=== PATIENT | male | born 1975 | race Caucasian/White ===

== ENCOUNTER 2024-09-11 11:18 | Inpatient (IN) | payer OTHER ==
[2024-09-11 11:48] VITALS: BMI 20.7
[2024-09-11] MEDS ORDERED: BENZOCAINE/MENTHOL (CHLORASEPTIC ) LOZENGE MM PRN (13:23)
[2024-09-11] MEDS ORDERED: LOPERAMIDE HCL 2 MG CAPSULE PO PRN (13:23)
[2024-09-11] MEDS ORDERED: NALOXONE (NARCAN) HCL 4 MG/0.1 ML SPRAY NS PRN (13:23)
[2024-09-11] MEDS ORDERED: MAG HYDROX/AL HYDROX/SIMETH 30 ML UNIT-DOSE CUP PO PRN (13:23)
[2024-09-11] MEDS ORDERED: MAGNESIUM HYDROX 2400MG/30ML ORAL SUSPENSION 30 ML CUP PO PRN (13:23)
[2024-09-11] MEDS ORDERED: chlordiazePOXIDE HCL 25 MG CAPSULE PO PRN (13:23)
[2024-09-11] MEDS ORDERED: POLYETHYLENE GLYCOL (HEALTHYLAX) 3350 17 GM PACKET PO PRN (13:23)
[2024-09-11] MEDS ORDERED: guaiFENesin 600 MG TABLET.ER (FP) PO PRN (13:23)
[2024-09-11] MEDS ORDERED: IBUPROFEN 400 MG TABLET (FP) PO PRN (13:23)
[2024-09-11] MEDS ORDERED: BISMUTH SUBSALICYLATE 524 MG/30 ML PO PRN (13:23)
[2024-09-11] MEDS ORDERED: DICYCLOMINE HCL 10 MG CAPSULE PO PRN (13:23)
[2024-09-11] MEDS ORDERED: BENZONATATE 200 MG CAPSULE PO PRN (13:23)
[2024-09-11] MEDS ORDERED: ALBUTEROL SO4 HFA INHALER IH PRN (13:55)
[2024-09-11] MEDS: FLUoxetine HCL 20 MG CAPSULE PO SCH (14:42)
[2024-09-11] MEDS: THIAMINE 100 MG TABLET PO SCH (22:33)
[2024-09-11] MEDS: traZODone HCL 50 MG TABLET (FP) PO SCH (22:34)
[2024-09-11] MEDS: MELATONIN 5 MG TABLETS PO SCH (22:34)
[2024-09-11] MEDS: chlordiazePOXIDE HCL 25 MG CAPSULE PO SCH (22:35)
[2024-09-12] MEDS: PRENATAL VITAMINS W/ FOLIC ACID TABLET (FP) PO SCH (10:09)
[2024-09-12 11:19] LABS: HEMATOCRIT 41.7 % (35.4-49); HEMOGLOBIN 13.9 GM/dL (11.7-16.9); MCH 28.8 pg (25.7-33.7); MCHC 33.3 g/dl (32.0-35.9); MEAN CELL VOLUME 86.4 fl (80-96); MEAN PLT VOLUME 9.1 fl (7.5-11.1); PLATELET COUNT 190 10^3/uL (134-434); RBC 4.82 M/mm3 (4.00-5.60); RDW 15.3 % (11.9-15.9)
[2024-09-12 11:31] LABS: CALCIUM 9.4 mg/dL (8.5-10.1); POTASSIUM 4.3 mmol/L (3.5-5.1)
[2024-09-12 11:32] LABS: ALBUMIN 3.8 g/dl (3.4-5.0); BLOOD UREA NITROGEN 20.3 mg/dL (7-18)
[2024-09-12 11:35] LABS: CREATININE 1.3 mg/dL (0.55-1.3)
[2024-09-12 11:36] LABS: BILIRUBIN,TOTAL 0.2 mg/dL (0.2-1)
[2024-09-12] MEDS: METHOCARBAMOL 500 MG TABLET PO PRN (22:27)
[2024-09-13] MEDS: chlordiazePOXIDE HCL 25 MG CAPSULE PO SCH (06:18)
[2024-09-13] MEDS: hydrOXYzine PAMOATE 25 MG CAPSULE (FP) PO PRN (22:25)
[2024-09-14] MEDS: chlordiazePOXIDE HCL 10 MG CAPSULE PO SCH (05:42)
[2024-09-14] MEDS: ACETAMINOPHEN 325 MG TABLET (FP) PO PRN (16:18)
[2024-09-14] MEDS: ONDANSETRON *ODT* 4 MG TABLET SL PRN (17:46)
[2024-09-14] MEDS: IBUPROFEN 600 MG TABLET (FP) PO PRN (17:46)
[2024-09-14] MEDS: chlordiazePOXIDE HCL 10 MG CAPSULE PO PRN (19:41)
[2024-09-14] MEDS: ACETAMINOPHEN 325 MG TABLET (FP) PO ONE (20:22)
[2024-09-15] MEDS: chlordiazePOXIDE HCL 10 MG CAPSULE PO SCH (05:59)
[2024-09-16] MEDS: chlordiazePOXIDE HCL 10 MG CAPSULE PO ONE (05:50)
[2024-09-16] MEDS: NALOXONE (NYS OPIOID OVERDOSE PROGRAM) 4 MG/0.1 ML SPRAY NS SCH (08:50)
[2024-09-16 11:01] VITALS: BP 99/59; PULSE 86; RESP 16; TEMP 97.5
== END 2024-09-16 13:10 | disposition other institution (70) | DRG 774 ==
LOC: YASAS 11:18 → Y3N 14:11
PROVIDERS: ADMIT Allergy & Immunology; ATTEND Surgery
PROC: HZ2ZZZZ Detoxification Services for Substance Abuse Treatment (ICD-10-PCS; principal; 2024-09-11)
DX: F10.230 Alcohol dependence with withdrawal, uncomplicated (principal); F14.20 Cocaine dependence, uncomplicated; F17.210 Nicotine dependence, cigarettes, uncomplicated; J45.20 Mild intermittent asthma, uncomplicated; Z88.0 Allergy status to penicillin
CPT/HCPCS: 36415; 80053; 80307; 85027; 86780; 93005; 93010; Q0162

== ENCOUNTER 2024-09-16 12:19 | Inpatient (IN) | payer OTHER ==
[2024-09-16] MEDS ORDERED: BENZONATATE 200 MG CAPSULE PO PRN (16:21)
[2024-09-16] MEDS ORDERED: ACETAMINOPHEN 325 MG TABLET (FP) PO PRN (16:21)
[2024-09-16] MEDS ORDERED: IBUPROFEN 600 MG TABLET (FP) PO PRN (16:21)
[2024-09-16] MEDS ORDERED: BENZOCAINE/MENTHOL (CHLORASEPTIC ) LOZENGE MM PRN (16:21)
[2024-09-16] MEDS ORDERED: NALOXONE (NYS OPIOID OVERDOSE PROGRAM) 4 MG/0.1 ML SPRAY NS PRN (16:21)
[2024-09-16] MEDS ORDERED: POLYETHYLENE GLYCOL (HEALTHYLAX) 3350 17 GM PACKET PO PRN (16:21)
[2024-09-16] MEDS ORDERED: IBUPROFEN 400 MG TABLET (FP) PO PRN (16:21)
[2024-09-16] MEDS ORDERED: MAGNESIUM HYDROX 2400MG/30ML ORAL SUSPENSION 30 ML CUP PO PRN (16:21)
[2024-09-16] MEDS ORDERED: guaiFENesin 600 MG TABLET.ER (FP) PO PRN (16:21)
[2024-09-16] MEDS ORDERED: MAG HYDROX/AL HYDROX/SIMETH 30 ML UNIT-DOSE CUP PO PRN (16:21)
[2024-09-16] MEDS ORDERED: NALOXONE (NARCAN) HCL 4 MG/0.1 ML SPRAY NS PRN (16:21)
[2024-09-16] MEDS ORDERED: LOPERAMIDE HCL 2 MG CAPSULE PO PRN (16:21)
[2024-09-16] MEDS ORDERED: ALBUTEROL SO4 HFA INHALER IH PRN (16:23)
[2024-09-16] MEDS: MELATONIN 5 MG TABLETS PO SCH (21:52)
[2024-09-16] MEDS: traZODone HCL 50 MG TABLET (FP) PO SCH (21:52)
[2024-09-16] MEDS: FLUoxetine HCL 20 MG CAPSULE PO SCH (21:52)
[2024-09-16] MEDS: THIAMINE 100 MG TABLET PO SCH (21:53)
[2024-09-16] MEDS: hydrOXYzine PAMOATE 25 MG CAPSULE (FP) PO PRN (21:53)
[2024-09-17] MEDS: PRENATAL VITAMINS W/ FOLIC ACID TABLET (FP) PO SCH (06:29)
[2024-09-17 06:48] VITALS: PULSE 60
[2024-09-17 09:40] VITALS: BP 102/52; RESP 18; TEMP 97
[2024-09-17 11:32] LABS: HEMATOCRIT 40.2 % (35.4-49); HEMOGLOBIN 13.4 GM/dL (11.7-16.9); MCH 28.7 pg (25.7-33.7); MCHC 33.3 g/dl (32.0-35.9); MEAN CELL VOLUME 86.3 fl (80-96); MEAN PLT VOLUME 8.4 fl (7.5-11.1); PLATELET COUNT 164 10^3/uL (134-434); RBC 4.66 M/mm3 (4.00-5.60); RDW 15.4 % (11.9-15.9); WHITE BLOOD COUNT 6.3 K/mm3 (4.0-10.0)
[2024-09-17] MEDS: NALOXONE (NYS OPIOID OVERDOSE PROGRAM) 4 MG/0.1 ML SPRAY NS SCH (12:01)
[2024-09-17 12:21] LABS: CALCIUM 8.9 mg/dL (8.5-10.1); GLUCOSE,RANDOM 90 mg/dL (74-106)
[2024-09-17 12:22] LABS: ALBUMIN 3.4 g/dl (3.4-5.0); BLOOD UREA NITROGEN 17.3 mg/dL (7-18); CO2 33 mmol/L (21-32)
[2024-09-17 12:23] LABS: ANION GAP 5 mmol/L (4-13); CHLORIDE 103 mmol/L (98-107); POTASSIUM 4.2 mmol/L (3.5-5.1); SODIUM 141 mmol/L (136-145)
[2024-09-17 12:25] LABS: SGOT/AST 17 U/L (15-37); SGPT/ALT 39 U/L (13-61)
[2024-09-17 12:26] LABS: BILIRUBIN,TOTAL 0.2 mg/dL (0.2-1); TOT PROT 6.4 g/dl (6.4-8.2)
[2024-09-17 12:27] LABS: ALK PHOS 92 U/L (45-117)
== END 2024-09-17 12:03 | disposition home or self-care (01) | DRG 772 ==
LOC: YASAS 12:19 → Y3NR 12:22
PROVIDERS: ADMIT Psychiatry & Neurology Pain Medicine; ATTEND Psychiatry & Neurology Pain Medicine
PROC: HZ42ZZZ Group Counseling for Substance Abuse Treatment, Cognitive-Behavioral (ICD-10-PCS; principal; 2024-09-16)
DX: F10.20 Alcohol dependence, uncomplicated (principal); F14.20 Cocaine dependence, uncomplicated; F17.210 Nicotine dependence, cigarettes, uncomplicated; F31.9 Bipolar disorder, unspecified; J45.20 Mild intermittent asthma, uncomplicated
CPT/HCPCS: 36415; 80053; 85027; 86780